=== PATIENT | female | born 1935 | race Caucasian/White ===

== ENCOUNTER 2020-04-22 10:25 | Emergency (ER) | payer MEDICARE ==
[~2020-04-22] VITALS: Ht 165.1 cm; Wt 81.6 kg
[~2020-04-22 10:25] MED LIST: COQ; FISH OIL 1,0001 EAC9; Z CARBIDOPA LEVO PO; Z.0.ASPIR 8181 MG PO; Z.0.CRESTOR10 MG PO; Z.0.MIRAPEX0.25 MG PO; Z.0.PRILOSEC OTC20 M PO; Z.0.SYNTHROID100 MCG PO
[2020-04-22] MEDS ORDERED: SODIUM CHLORIDE 0.9% 1000ML 1,000 ML IV STA (10:37)
[2020-04-22] MEDS ORDERED: ONDANSETRON HCL INJ 2MG/ML 2ML 2 MG/ML VIAL IV STA (10:37)
[2020-04-22] MEDS ORDERED: FENTANYL CITRATE/PF 100MCG/2 ML INJ IV ONE (10:45)
[2020-04-22] MEDS ORDERED: PANTOPRAZOLE 40 MG 10ML VIAL IV ONE (11:00)
[2020-04-22 11:09] LABS: BASOPHILS # (AUTO) 0.1 (0.0-0.1); BASOPHILS % 0.6 % (0.0-1.0); EOSINOPHILS # (AUTO) 0.5 (0.0-0.4); EOSINOPHILS % 6.6 % (0.0-6.0); HEMATOCRIT 39.5 % (34.2-44.1); HEMOGLOBIN 12.7 g/dL (12.0-16.0); LYMPHOCYTES # (AUTO) 4.1 (1.0-3.2); LYMPHOCYTES % 50.2 % (18.0-39.1); MEAN CORPUSCULAR HEMOGLOBIN 30.2 pg (28-32); MEAN CORPUSCULAR HGB CONC 32.2 g/dL (31-35); MEAN CORPUSCULAR VOLUME 93.8 fL (81-99); MONOCYTES # (AUTO) 0.6 (0.2-0.8); MONOCYTES % 7.7 % (4.4-11.3); NEUTROPHILS # (AUTO) 2.8 (2.1-6.9); NEUTROPHILS % 34.7 % (38.7-80.0); PLATELET COUNT 195 x10e3/uL (140-360); RED BLOOD COUNT 4.21 x10e6/uL (3.6-5.1); RED CELL DISTRIBUTION WIDTH 13.2 % (11.7-14.4)
[2020-04-22 11:21] LABS: INR 0.95; PARTIAL THROMBOPLASTIN TIME 27.7 seconds (23.8-35.5); PROTHROMBIN TIME 13.1 seconds (11.9-14.5)
--- OUTSIDE RECORDS SUMMARY | 2020-04-22 11:23 | XMS REPORT | Continuity of Care Document ---
Author Author [facility] t Organization [facility] Address [address] [place] [address] Phone Unavailable Care Team Providers Care Varnish Finisher Name Role Phone William Arrieta MD PCP Payers Payer Name Policy Type Policy Number Effective Date Expiration Date S ource Problems This patient has no known problems. Allergies, Adverse Reactions, Alerts Allergy Name Allergy Type Status Severity Reaction(s) Onset Date Inacti ve Date Treating Clinician Comments Source Procaine HCl DA Active 2010-05-28 00:00:00 [facility] Sulfa (Sulfonamide Antibiotics) DA Active 2010-05-28 00 :00:00 [facility] codeine DA Active [place] 2010-05-28 00:00:00 [facility] Tetanus Diphtheria Tox,Adult DA Active [place] 2010-05-28 00: 00:00 [facility] pneumococcal vaccine DA Active 2010-05-28 00:00:00 [facility] Social History Social Habit Start Date Stop Date Quantity Comments Source Sex Assigned At [facility] Medications This patient has no known medications. Procedures This patient has no known procedures. Plan of Care Planned Activity Planned Date Details Comments Source Future Scheduled Test 2020-04-18 00:00:00 INFLUENZA VACCINE [code = INFLUENZA VACCINE] [facility] Future Scheduled Test 2002 00:00:00 65+ PNEUMOCOCCAL V ACCINE (1 of 2 - PCV13) [code = 65+ PNEUMOCOCCAL VACCINE (1 of 2 - PCV13)] [facility] Future Scheduled Test 1987 00:00:00 SHINGLES VACCINES (#1) [code = SHINGLES VACCINES (#1)] [facility] Results This patient has no known results.
--- OUTSIDE RECORDS SUMMARY | 2020-04-22 11:23 | XMS REPORT | Clinical Summary ---
Author Author [facility] Address Unknown Phone Unavailable Care Team Providers Care Fur Trimmer Name Role Phone Perez Arrieta MD PCP Allergies Not on File Medications Not on file Active Problems Not on file Social History Date Tobacco Use Types Packs/Day Years Used Never Assessed Sex Assigned at Date Recorded Not on file Industry Job Start Date Occupation Not on file Not on file Not on file Travel End Travel History Travel Start No recent travel history available. Last Filed Vital Signs Not on file Plan of Treatment Health Maintenance Due Date Last Done Comments SHINGLES VACCINES (#1) 1987 65+ PNEUMOCOCCAL VACCINE 2002 (1 of 2 - PCV13) INFLUENZA VACCINE 04/18/2020 Results Not on fileafter 04/22/2019 Insurance Type Payer Benefit Subscriber ID Effective Phone Address Plan / Dates Group Medicare MEDICARE MEDICARE xxxxxxxxxx 2002- [place], PART A AND Present [place] Commercial AAR AAR xxxxxxxxxxx [id number] SUPPLEMENT resent Advance Directives For more information, please contact: [phone] Patient Medical Numerical Control Operator Explanation Type Date Recorded Advance Directives, Living Will and Medical Power of Senior Ui Web Developer
[2020-04-22 11:32] LABS: ALANINE AMINOTRANSFERASE 6 IU/L (0-55); ALBUMIN 3.9 g/dL (3.5-5.0); ALBUMIN/GLOBULIN RATIO 1.2 (0.8-2.0); ALKALINE PHOSPHATASE 93 IU/L (40-150); AMYLASE 61 U/L (25-125); BLOOD UREA NITROGEN 22 mg/dL (7-26); BUN/CREATININE RATIO 27 (6-25); CALCIUM 9.5 mg/dL (8.4-10.2); CARBON DIOXIDE 24 mmol/L (22-29); CHLORIDE 105 mmol/L (98-107); CREATINE KINASE 70 IU/L (29-168); CREATININE, SERUM 0.83 mg/dL (0.57-1.11); EST GLOMERULAR FILTRATION RATE > 60 ML/MIN (60-); GLUCOSE 134 mg/dL (74-118); LIPASE 21 U/L (8-78); SODIUM 139 mmol/L (136-145)
--- NOTE | 2020-04-22 11:55 | Diagnostic Imaging Report ---
EXAMINATION: CHEST SINGLE (PORTABLE) INDICATION: Abdominal pain COMPARISON: Chest radiograph of 12/01/2011 FINDINGS: LINES/TUBES:None LUNGS:The lungs are well-inflated. No focal consolidation or pulmonary edema. PLEURA:No pleural effusion or pneumothorax. MEDIASTINUM:The cardiomediastinal silhouette appears normal in size and shape. Atherosclerotic calcifications of the thoracic aorta. BONES/SOFT TISSUES:No acute osseous injury. ABDOMEN:No free air under the diaphragm. IMPRESSION: No focal pneumonia or pulmonary edema. Signed by: Prema Fagan MD on 04/22/2020 11:51 AM
--- NOTE | 2020-04-22 12:20 | Emergency Department Note ---
History of Present Illnes History of Present Illness Chief Complaint: Abdominal Complaints History of Present Illness This is a 84 year old female C/O ABD PAIN RADIATING TO BACK SINCE YESTERDAY Historian: Patient, Family Member Arrival Mode: Car Check Writer Salesperson Required: No Onset (how long ago): day(s) Location: MODE Quality: PAIN Radiation: Reports back Severity: severe Onset quality: gradual Timing of current episode: intermittent Progression: waxing and waning Chronicity: new Context: Denies recent illness Relieving factors: none Exacerbating factors: none Associated symptoms: Reports denies other symptoms Treatments prior to arrival: none Past Medical/Family History Physician Review I have reviewed the patient's past medical and family history. Any updates have been documented here. Past Medical History Recent Fever: No Clinical Suspicion of Infectio: No New/Unexplained Change in Ment: No Past Medical History: Hypothyroidism, UTI's, GERD, Hyperlipedemia Other Medical History: PARKINSONS CHRONIC CONSTIPATION Past Surgical History: Back Surgery Other Surgery: BACK SURGERY THYROIDECTOMY foot sx Social History Smoking Cessation: Never Smoker Counseling Performed: No Alcohol Use: None Any Illegal Drug Use: No TB Exposure/Symptoms: No Physically hurt or threatened: No Family History Family history of heart diseas: No Other Last Tetanus: UTD Any Pre-Existing Lines (PICC,: No Review of Systems Review of Systems Constitutional: Reports no symptoms EENTM: Reports no symptoms Cardiovascular: Reports no symptoms Respiratory: Reports no symptoms Gastrointestinal: Reports as per HPI Genitourinary: Reports no symptoms Musculoskeletal: Reports no symptoms Integumentary: Reports no symptoms Neurological: Reports no symptoms Psychological: Reports no symptoms Endocrine: Reports no symptoms Hematological/Lymphatic: Reports no symptoms Physical Exam Related Data Allergies: Coded Allergies: Codeine (Verified Allergy, Mild, DIZZINESS,CONFUSION, 12/01/11) Procaine HCl (Verified Allergy, Mild, CRYING,HEART RACED, 12/01/11) Uncoded Allergies: SULFA (Allergy, Mild, HIVES, 12/01/11) Triage Vital Signs Vital Signs Date Time Temp Pulse Resp B/P (MAP) Pulse Ox O2 Delivery O2 Flow Rate FiO2 04/22/20 10:33 97.4 83 20 123/106 99 Room Air Vital signs reviewed: Yes Physical Exam CONSTITUTIONAL Constitutional: Present well-developed, Present obese HENT HENT: Present normocephalic, Present atraumatic, Present oropharynx clear/moist, Present nose normal HENT L/R: Present left ext ear normal, Present right ext ear normal EYES Eyes: Reports PERRL, Reports conjunctivae normal NECK Neck: Present ROM normal PULMONARY Pulmonary: Present effort normal, Present breath sounds normal CARDIOVASCULAR Cardiovascular: Present regular rhythm, Present heart sounds normal, Present capillary refill normal, Present normal rate GASTROINTESTINAL Abdominal: Present soft, Present bowel sounds normal, Present tender (MOD TENDERNESS MIDLINE FROM UMBILICUS TO MODE AREA); Absent guarding, Absent rebound, Absent left CVA tenderness, Absent right CVA tenderness GENITOURINARY Genitourinary: Present exam deferred SKIN Skin: Present warm, Present dry MUSCULOSKELETAL Musculoskeletal: Present ROM normal NEUROLOGICAL Neurological: Present alert, Present oriented x 3, Present no gross motor or sensory deficits PSYCHOLOGICAL Psychological: Present mood/affect normal, Present judgement normal Results Laboratory Result Diagram: 04/22/20 1038 04/22/20 1038 Laboratory Laboratory Tests Test 04/22/20 10:38 White Blood Count 8.09 x10e3/uL (4.8-10.8) Red Blood Count 4.21 x10e6/uL (3.6-5.1) Hemoglobin 12.7 g/dL (12.0-16.0) Hematocrit 39.5 % (34.2-44.1) Mean Corpuscular Volume 93.8 fL (81-99) Mean Corpuscular Hemoglobin 30.2 pg (28-32) Mean Corpuscular Hemoglobin Concent 32.2 g/dL (31-35) Red Cell Distribution Width 13.2 % (11.7-14.4) Platelet Count 195 x10e3/uL (140-360) Neutrophils (%) (Auto) 34.7 % (38.7-80.0) Lymphocytes (%) (Auto) 50.2 % (18.0-39.1) Monocytes (%) (Auto) 7.7 % (4.4-11.3) Eosinophils (%) (Auto) 6.6 % (0.0-6.0) Basophils (%) (Auto) 0.6 % (0.0-1.0) Neutrophils # (Auto) 2.8 (2.1-6.9) Lymphocytes # (Auto) 4.1 (1.0-3.2) Monocytes # (Auto) 0.6 (0.2-0.8) Eosinophils # (Auto) 0.5 (0.0-0.4) Basophils # (Auto) 0.1 (0.0-0.1) Absolute Immature Granulocyte (auto 0.02 x10e3/uL (0-0.1) Prothrombin Time 13.1 seconds (11.9-14.5) Prothromb Time International Ratio 0.95 Activated Partial Thromboplast Time 27.7 seconds (23.8-35.5) Sodium Level 139 mmol/L (136-145) Potassium Level 4.0 mmol/L (3.5-5.1) Chloride Level 105 mmol/L (98-107) Carbon Dioxide Level 24 mmol/L (22-29) Anion Gap 14.0 mmol/L (8-16) Blood Urea Nitrogen 22 mg/dL (7-26) Creatinine 0.83 mg/dL (0.57-1.11) Estimat Glomerular Filtration Rate > 60 ML/MIN (60-) BUN/Creatinine Ratio 27 (6-25) Glucose Level 134 mg/dL (74-118) Calcium Level 9.5 mg/dL (8.4-10.2) Magnesium Level 2.0 MG/DL (1.3-2.1) Total Bilirubin 0.5 mg/dL (0.2-1.2) Aspartate Amino Transf (AST/SGOT) 21 IU/L (5-34) Alanine Aminotransferase (ALT/SGPT) 6 IU/L (0-55) Alkaline Phosphatase 93 IU/L (40-150) Creatine Kinase 70 IU/L (29-168) Creatine Kinase MB 1.20 ng/mL (0-5.0) Troponin I < 0.001 ng/mL (0-0.300) Total Protein 7.1 g/dL (6.5-8.1) Albumin 3.9 g/dL (3.5-5.0) Globulin 3.2 g/dL (2.3-3.5) Albumin/Globulin Ratio 1.2 (0.8-2.0) Amylase Level 61 U/L (25-125) Lipase 21 U/L (8-78) Lab results reviewed: Yes Imaging Imaging results reviewed: Yes Procedures 12 Lead ECG Interpretation ECG Interpretation : ECG: ECG 1 Check Writer Salesperson: Interpreted by ED physician Date: Apr 22, 2020 Time: 11:09 Rhythm: sinus rhythm Rate: normal (80) QRS axis: normal Clinical Impression: abnormal ECG (NON-SPECIFIC ST-TW CHANGES) Assessment & Plan Medical Decision Making MDM CBC, CHEM, CARDIACS, ECG, LIPASE, CT ABD/PELVIS - R/O STEMI/NSTEMI, PANCRE ATITIS, ELECTROLYTE ABNL, AAA, ETC Reassessment Reassessment DC HOME, MIRALAX BID, FLEETS ENEMAS, F/U PCP Assessment & Plan Final Impression: (1) Abdominal pain (2) Constipation Depart Disposition: HOME, SELF-CARE Last Vital Signs Date Time Temp Pulse Resp B/P (MAP) Pulse Ox O2 Delivery O2 Flow Rate FiO2 04/22/20 10:33 97.4 83 20 123/106 99 Room Air Home Meds Reported Medications [COQ10 200 Mg] No Conflict Check 12/01/11 Burnett-3/Dha/Epa/Fish Oil (FISH OIL 1,000 MG SOFTGEL) 1 Each Capsule 12/01/11 Aspirin (Aspir 81) 81 Mg Tablet.dr, 81 MG PO 12/01/11 Omeprazole Magnesium (Prilosec Otc) 20 Mg Tablet.dr, 20 MG PO 12/01/11 Pramipexole Di-Hcl (Mirapex) 0.25 Mg Tablet, 0.25 MG PO 12/01/11 Rosuvastatin Calcium (Crestor) 10 Mg Tablet, 10 MG PO 12/01/11 Carbidopa/Levodopa (Carbidopa-Levo 25-100 Tab) 1 Each Tablet, 1 EACH PO 12/01/11 Levothyroxine Sodium (Synthroid) 100 Mcg Tablet, 100 MCG PO 12/01/11 Medications in the ED Pantoprazole Sodium 40 mg ONCE ONCE IV Last administered on 04/22/20at 11:01; Admin Dose 40 MG; Start 04/22/20 at 11:00; Stop 04/22/20 at 11:01; Status DC Ondansetron HCl 4 mg ONCE STAT IV Last administered on 04/22/20at 11:00; Admin Dose 4 MG; Start 04/22/20 at 10:37; Stop 04/22/20 at 10:43; Status DC Sodium Chloride 1,000 ml @ 0 mls/hr Q0M STAT IV Last administered on 04/22/20at 11:00; Admin Dose 999 MLS/HR; Start 04/22/20 at 10:37; Stop 04/22/20 at 10:41; Status DC Fentanyl Citrate 50 mcg ONCE ONCE IV Last administered on 04/22/20at 11:00; Admin Dose 50 MCG; Start 04/22/20 at 10:45; Stop 04/22/20 at 10:46; Status DC SHIRIN FRAIRE MD Apr 22, 2020 12:19
[2020-04-22] MEDS ORDERED: LORAZEPAM INJ 2 MG/ML VIAL IV ONE (12:30)
--- NOTE | 2020-04-22 13:21 | Diagnostic Imaging Report ---
EXAM: CT Abdomen and Pelvis WITH intravenous contrast INDICATION: Abdominal pain COMPARISON: Chest radiograph earlier the same day TECHNIQUE: Abdomen and pelvis were scanned utilizing a multidetector helical scanner from the lung base to the pubic symphysis after administration of IV contrast. Coronal and sagittal reformations were obtained. Routine protocol was performed. Scan was performed during portal venous phase. IV CONTRAST: 100mL of Isovue 370 ORAL CONTRAST: Water RADIATION DOSE: Total DLP: 558 mGy*cm Dose modulation, iterative reconstruction, and/or weight based adjustment of the mA/kV was utilized to reduce the radiation dose to as low as reasonably achievable. FINDINGS: LOWER THORAX: Mild bibasilar dependent subsegmental atelectasis. HEPATOBILIARY: Mild hepatic steatosis. Unremarkable gallbladder. No biliary ductal dilation. SPLEEN: No splenomegaly. PANCREAS: No focal masses or ductal dilatation. ADRENALS: No adrenal nodules. KIDNEYS/URETERS: No hydronephrosis, stones, or solid mass lesions. PELVIC ORGANS/BLADDER: Fibroid uterus. Small focus of antidependent air in the bladder. PERITONEUM / RETROPERITONEUM: No free air or fluid. LYMPH NODES: No lymphadenopathy. VESSELS: Moderate scattered atherosclerotic calcifications of the nonaneurysmal abdominal aorta and major branches. GI TRACT: Increased stool burden throughout the colon. No abnormal bowel thickening. No bowel obstruction. BONES AND SOFT TISSUES: Grade 1 anterolisthesis at L4-5 and grade 1 retrolisthesis at T12-L1 and L1-2. No acute osseous injury. Mild diffuse osteopenia. Multilevel degenerative changes. IMPRESSION: Increased stool burden throughout the colon can be seen in the setting of constipation. Small focus of antidependent air in the bladder, possibly from recent catheterization or instrumentation. Diffuse hepatic steatosis. Signed by: Prema Fagan MD on 04/22/2020 1:18 PM
[2020-04-22 14:24] LABS: CLARITY,URINE SL CLOUDY (CLEAR); COLOR,URINE YELLOW (YELLOW)
[2020-04-22 14:27] LABS: KETONES,URINE TRACE (NEGATIVE); LEUKOCYTE ESTERASE ,URINE TRACE (NEGATIVE); NITRITE,URINE POSITIVE (NEGATIVE); PROTEIN,URINE DIPSTICK NEGATIVE (NEGATIVE); URINE UROBILINOGEN 0.2 mg/dL (0.2 - 1)
[2020-04-22 14:28] LABS: BILIRUBIN,URINE NEGATIVE (NEGATIVE)
[2020-04-22 14:33] LABS: BACTERIA,URINE MANY /HPF; RBC,URINE 0-5 /HPF (0-5)
[2020-04-22 14:34] LABS: EPITHELIAL CELLS,URINE RARE /LPF
[2020-04-22 15:19] VITALS: BP 169/59
--- NOTE | 2020-04-22 15:26 | NUR ---
called daughter and updated and discharged and information all given
[2020-04-22] MEDS ORDERED: SODIUM CHLORIDE 0.9% 50ML 50 ML ONE (16:00)
[2020-04-22] MEDS ORDERED: IOPAMIDOL 370 MG/ML 200 ML INFUS..BTL INJ ONE (16:00)
== END 2020-04-22 15:35 | disposition home or self-care (01) ==
LOC: ER 11:20
DX: R10.30 Lower abdominal pain, unspecified (principal); K59.00 Constipation, unspecified; G20 Parkinson's disease; E78.5 Hyperlipidemia, unspecified; E03.9 Hypothyroidism, unspecified; K21.9 Gastro-esophageal reflux disease without esophagitis
CPT/HCPCS: 36415; 71045; 74177; 80053; 81001; 82150; 82550; 82553; 83690; 83735; 84484; 85025; 85610; 85730; 87086; 87186; 93005; 99284; C9113; J2060; J2405; J3010; J7030; Q9967